=== PATIENT | female | born 1960 | race Caucasian/White ===

== ENCOUNTER 2019-04-05 15:06 | Inpatient (IN) | payer OTHER ==
[2019-04-05] MEDS ORDERED: FENTANYL CITR 100 MCG/2 ML ONE ×2 (16:01→16:56)
[2019-04-05] MEDS ORDERED: NA CHLORIDE 0.9% 1,000 ML ONE (16:02)
[2019-04-05] MEDS ORDERED: ONDANSETRON 4 MG/2 ML VIAL ONE (16:02)
[2019-04-05 16:10] LABS: Absolute Lymphocytes (CBC) 0.3 K/uL (0.7-4.9); Absolute Monocytes 0.2 K/uL (0.1-1.3); Basophils % 0.2 % (0-1.3); Eosinophils % 0.4 % (0-4.4); Hematocrit 42.9 % (36.0-45.0); MPV 7.9 fL (7.6-11.3); Monocytes % 1.9 % (3.3-12.3); RBC Red Blood Cell Count 4.76 M/uL (3.86-4.86)
[2019-04-05 16:25] LABS: Albumin 3.4 g/dL (3.4-5.0); Bilirubin Direct 0.1 mg/dL (0-0.2); Bilirubin Total 0.5 mg/dL (0.2-1.0); Potassium 3.5 mmol/L (3.5-5.1); Protein, Total 7.2 g/dL (6.4-8.2)
--- NOTE | 2019-04-05 17:16 | RAD REPORT ---
EXAM DESCRIPTION: CTAbdomen Pelvis W Contrast - 04/05/2019 4:56 pm CLINICAL HISTORY: Abdominal pain. FLANK PAIN COMPARISON: No comparisons TECHNIQUE: Biphasic CT imaging of the abdomen and pelvis was performed with 100 ml non-ionic IV cont rast. All CT scans are performed using dose optimization technique as appropriate and may include automated exposure control or mA/KV adjustment according to patient size. FINDINGS: The lung bases are clear. The liver, spleen, pancreas, adrenal glands and kidneys are within normal limits. Several thickened and dilated small bowel loops are seen in the upper abdomen and left flank. The ap pendix is normal. No evidence of significant lymphadenopathy. No suspicious bony findings. IMPRESSION: Multiple thickened and dilated small bowel loops are seen in the upper abdomen and left flank region. Primary diagnostic considerations would include inflammation/antritis versus early mech anical obstruction. Advise followup imaging in 24-48 hours if clinical symptomology persists.
--- NOTE | 2019-04-05 17:49 | ER ---
Nurse's Notes [facility] Name: Zora Houston Age: 58 yrs Sex: Female : 1960 Arrival Date: 04/05/2019 Time: 15:11 Bed 30 Private MD: Diagnosis: Small bowel obstruction Presentation: 04/05 15:15 Presenting complaint: Patient states: I have 6 disc replacements and having an rv operation with my doctor and when I told them about my pain on my left side, they looked at it and found a mass. I have an appointment on Sunday. EMS states: Pain started last night described as constant and sharp. it got worse today, 10/10 pain accompanied by nausea and vomiting since this 630am. Transition of care: patient was not received from another setting of care. Onset of symptoms was April 04, 2019 at 20:00. Risk Assessment: Do you want to hurt yourself or someone else? Patient reports no desire to harm self or others. Initial Sepsis Screen: Does the patient meet any 2 criteria? No. Patient's initial sepsis screen is negative. Does the patient have a suspected source of infection? No. Patient's initial sepsis screen is negative. Care prior to arrival: None. 15:15 Method Of Arrival: EMS: [facility] rv 15:15 Acuity: LAYA 3 rv Triage Assessment: 15:21 General: Appears in no apparent distress. uncomfortable, Behavior is cooperative, rv restless. Pain: Complains of pain in left side. EENT: No signs and/or symptoms were reported regarding the EENT system. Neuro: Level of Consciousness is awake, alert, obeys commands, Oriented to person, place, time, situation. Cardiovascular: Patient's skin is warm and dry. Respiratory: Airway is patent. GI: Reports nausea, vomiting, since 630am. : No signs and/or symptoms were reported regarding the genitourinary system. Derm: Skin is intact. Musculoskeletal: No signs and/or symptoms reported regarding the musculoskeletal system. Historical: - Allergies: 15:21 Phenergan; rv 15:21 Aspirin; rv 15:21 Stadol; rv - Home Meds: 15:21 None [Active]; rv - PMHx: 15:21 back problem; rv - PSHx: 15:21 Cholecystectomy; disc replacement; rv - Immunization history:: Adult Immunizations up to date. - Social history:: Smoking status: Patient uses tobacco products, smokes one-half pack cigarettes per day. - Ebola Screening: : No symptoms or risks identified at this time. Screenin:23 Abuse screen: Denies threats or abuse. Denies injuries from another. Nutritional rv screening: No deficits noted. Tuberculosis screening: No symptoms or risk factors identified. Fall Risk None identified. Assessment: 17:46 Reassessment: Patient appears in no apparent distress at this time. No changes from rv previously documented assessment. Patient and/or family updated on plan of care and expected duration. Pain level reassessed. Patient is alert, oriented x 3, equal unlabored respirations, skin warm/dry/pink. CHARISMA Rasheed went to the patient and explained the diagnostic results and plan of care. waiting for admission orders. 19:28 Reassessment:. rv Vital Signs: 15:11 BP 146 / 135; Pulse 127; Resp 20; Temp 98.8; Pulse Ox 100% ; lt1 16:00 BP 95 / 66; Pulse 112; Resp 18; Temp 98.4; Pulse Ox 97% ; rv 16:30 BP 102 / 88; Pulse 107; Resp 19; Pulse Ox 100% ; rv 17:30 BP 95 / 55; Pulse 88; Resp 18; Pulse Ox 99% ; rv 18:00 BP 91 / 46; Pulse 98; Resp 18; Pulse Ox 100% ; rv 18:30 BP 93 / 72; Pulse 85; Resp 16; Temp 99; Pulse Ox 99% ; rv 19:00 BP 96 / 56; Pulse 96; Resp 19; Pulse Ox 99% ; rv 19:32 BP 107 / 60; Pulse 102; Resp 21; Temp 99.6; Pulse Ox 100% ; rv ED Course: 15:11 Patient arrived in ED. rv 15:15 Alex Narayanan RN is Primary Nurse. rv 15:19 Triage completed. rv 15:22 Wili Leon NP is PHCP. pm1 15:22 Alessio Villa MD is Attending Physician. pm1 15:23 Patient has correct armband on for positive identification. Bed in low position. Call rv light in reach. Side rails up X 1. Pulse ox on. NIBP on. 15:23 Patient placed in an exam room, on a stretcher, on pulse oximetry, Patient notified of rv wait time. 15:24 Inserted saline lock: 22 gauge in right antecubital area, using aseptic technique. ss Blood collected. 16:03 Radiology exam delayed due to lab results not completed at this time. (BUN/Creatinine). mw3 16:03 Radiology exam delayed due to test not completed at this time. mw3 16:58 CT Abd/Pelvis - W/Contrast In Process Unspecified. EDMS 16:59 CT completed. Pt tolerated procedure poorly. Patient moved back from CT. mw3 17:47 Zabrina Bailon MD is Hospitalizing Provider. pm1 20:17 No provider procedures requiring assistance completed. Patient admitted, IV remains in rv place. Administered Medications: 15:00 Drug: Zofran 4 mg Route: IVP; Site: right antecubital; rv 17:44 Follow up: Response: No adverse reaction; Nausea is decreased rv 16:00 Drug: fentaNYL (PF) 50 mcg Route: IVP; Site: right antecubital; rv 17:44 Follow up: Response: Pain is unchanged, physician notified rv 16:01 Drug: NS 0.9% 1000 ml Route: IV; Rate: 1000 ml; Site: right antecubital; rv 17:44 Follow up: IV Status: Completed infusion; IV Intake: 1000ml rv 16:44 Drug: fentaNYL (PF) 50 mcg Route: IVP; Site: right antecubital; rv 17:44 Follow up: Response: Pain is unchanged, physician notified rv 17:43 Drug: morphine 4 mg Route: IVP; Site: right antecubital; rv 19:34 Follow up: Response: No adverse reaction; Pain is unchanged, physician notified rv 19:11 Drug: TORadol 30 mg Route: IVP; Site: right antecubital; ca1 19:34 Follow up: Response: Marked relief of symptoms; Pain is decreased rv Intake: 17:44 IV: 1000ml; Total: 1000ml. rv Outcome: 17:48 Decision to Hospitalize by Provider. pm1 20:17 Admitted to Tele accompanied by tech, via wheelchair, room 411, Report called to rv elias rebolledo 20:17 Condition: improved 20:17 Instructed on the need for admit. 20:18 Patient left the ED. rv Signatures: Dispatcher [facility] ZOEYIN Magda Torres RN RN ss Wili Leon [employer] FLOOR WORKER [employer] FLOOR WORKER pm1 Nina Snider mw3 Alex Narayanan RN RN rv Alyse Klein RN RN ca1 Maddi Anderson lt1 Corrections: (The following items were deleted from the chart) 19:33 18:30 BP 93 / 72; Pulse 85bpm; Resp 16bpm; Pulse Ox 99%; Temp 98.4F; rv rv
--- NOTE | 2019-04-05 17:49 | EDPHYS ---
Physician Documentation [facility] Name: Zora Houston Age: 58 yrs Sex: Female : 1960 Arrival Date: 04/05/2019 Time: 15:11 Bed 30 Private MD: ED Physician Alessio Villa HPI: 04/05 16:15 This 58 yrs old Female presents to ER via EMS with complaints of Left flank pm1 pain. 16:15 The patient complains of pain in the left low back. Onset: The symptoms/episode pm1 began/occurred this morning. Modifying factors: The symptoms are alleviated by nothing. the symptoms are aggravated by nothing. Associated signs and symptoms: Pertinent positives: diarrhea, nausea, vomiting, Pertinent negatives: fever. Severity of pain: in the emergency department the pain is actually worse. The patient has not experienced similar symptoms in the past. The patient has been recently seen by a physician: with different complaint(s), Steroid injections to lumbar spine area on Sunday of last week. Patient felt fine until this morning with left flank pain, with multiple episodes of nausea, vomiting, and diarrhea. Historical: - Allergies: 15:21 Phenergan; rv 15:21 Aspirin; rv 15:21 Stadol; rv - Home Meds: 15:21 None [Active]; rv - PMHx: 15:21 back problem; rv - PSHx: 15:21 Cholecystectomy; disc replacement; rv - Immunization history:: Adult Immunizations up to date. - Social history:: Smoking status: Patient uses tobacco products, smokes one-half pack cigarettes per day. - Ebola Screening: : No symptoms or risks identified at this time. ROS: 16:17 Constitutional: Negative for fever, chills, and weight loss, Eyes: Negative for injury, pm1 pain, redness, and discharge, ENT: Negative for injury, pain, and discharge, Neck: Negative for injury, pain, and swelling, Cardiovascular: Negative for chest pain, palpitations, and edema, Respiratory: Negative for shortness of breath, cough, wheezing, and pleuritic chest pain. 16:17 : Negative for injury, bleeding, discharge, and swelling, MS/Extremity: Negative for injury and deformity, Skin: Negative for injury, rash, and discoloration, Neuro: Negative for headache, weakness, numbness, tingling, and seizure. 16:17 Abdomen/GI: Positive for abdominal pain, nausea, vomiting, and diarrhea, Negative for constipation. 16:17 Back: Positive for flank pain, on the left, Negative for decreased range of motion. Exam: 16:17 Constitutional: This is a well developed, well nourished patient who is awake, alert, pm1 and in no acute distress. Head/Face: Normocephalic, atraumatic. Eyes: Pupils equal round and reactive to light, extra-ocular motions intact. Lids and lashes normal. Conjunctiva and sclera are non-icteric and not injected. Cornea within normal limits. Periorbital areas with no swelling, redness, or edema. ENT: Nares patent. No nasal discharge, no septal abnormalities noted. Tympanic membranes are normal and external auditory canals are clear. Oropharynx with no redness, swelling, or masses, exudates, or evidence of obstruction, uvula midline. Mucous membranes moist. Neck: Trachea midline, no thyromegaly or masses palpated, and no cervical lymphadenopathy. Supple, full range of motion without nuchal rigidity, or vertebral point tenderness. No Meningismus. Chest/axilla: Normal chest wall appearance and motion. Nontender with no deformity. No lesions are appreciated. Cardiovascular: Regular rate and rhythm with a normal S1 and S2. No gallops, murmurs, or rubs. Normal PMI, no JVD. No pulse deficits. Respiratory: Lungs have equal breath sounds bilaterally, clear to auscultation and percussion. No rales, rhonchi or wheezes noted. No increased work of breathing, no retractions or nasal flaring. 16:17 Skin: Warm, dry with normal turgor. Normal color with no rashes, no lesions, and no evidence of cellulitis. MS/ Extremity: Pulses equal, no cyanosis. Neurovascular intact. Full, normal range of motion. 16:17 Abdomen/GI: Inspection: abdomen appears normal, Palpation: moderate abdominal tenderness, in the left upper quadrant and left lower quadrant, mass, is not appreciated, rebound tenderness, is not appreciated. 16:17 Back: pain, that is moderate, of the left low back, normal spinal alignment noted, vertebral tenderness, is not appreciated. 16:17 Neuro: Orientation: is normal, Motor: is normal, moves all fours, Sensation: is normal, no obvious gross deficits. Vital Signs: 15:11 BP 146 / 135; Pulse 127; Resp 20; Temp 98.8; Pulse Ox 100% ; lt1 16:00 BP 95 / 66; Pulse 112; Resp 18; Temp 98.4; Pulse Ox 97% ; rv 16:30 BP 102 / 88; Pulse 107; Resp 19; Pulse Ox 100% ; rv 17:30 BP 95 / 55; Pulse 88; Resp 18; Pulse Ox 99% ; rv 18:00 BP 91 / 46; Pulse 98; Resp 18; Pulse Ox 100% ; rv 18:30 BP 93 / 72; Pulse 85; Resp 16; Temp 99; Pulse Ox 99% ; rv 19:00 BP 96 / 56; Pulse 96; Resp 19; Pulse Ox 99% ; rv 19:32 BP 107 / 60; Pulse 102; Resp 21; Temp 99.6; Pulse Ox 100% ; rv MDM: 15:35 Patient medically screened. pm1 17:30 ED course: Multiple thickened and dilated small bowel loops in the upper abdomen and pm1 left flank region consistent with patient' presentation of pain. Impression is early mechanical obstruction therefore I will admit the patient. 17:37 Data reviewed: vital signs. Data interpreted: Pulse oximetry: on room air is 100 %. pm1 Interpretation: normal. Counseling: I had a detailed discussion with the patient and/or guardian regarding: the historical points, exam findings, and any diagnostic results supporting the discharge/admit diagnosis, lab results, radiology results, the need for further work-up and treatment in the hospital. 17:40 Physician consultation: Zabrina Bailon MD was called at 17:40, was contacted at 17:40, pm1 regarding admission, patient's condition. 18:16 Physician consultation: Zabrina Bailon MD was contacted at 18:16, regarding admission, pm1 admitted patient to observation status. 04/05 15:42 Order name: Basic Metabolic Panel; Complete Time: 16:34 pm1 04/05 15:42 Order name: CBC with Diff; Complete Time: 18:12 pm1 04/05 15:42 Order name: Creatinine for Radiology; Complete Time: 16:22 pm1 04/05 15:42 Order name: Hepatic Function; Complete Time: 16:34 pm1 04/05 15:42 Order name: Lipase; Complete Time: 16:34 pm1 04/05 18:03 Order name: CBC Smear Scan; Complete Time: 18:12 EDNJ 04/05 15:42 Order name: IV Saline Lock; Complete Time: 16:01 pm1 04/05 15:42 Order name: CT Abd/Pelvis - W/Contrast; Complete Time: 17:23 pm1 04/05 15:42 Order name: Labs collected and sent; Complete Time: 16:01 pm1 Administered Medications: 15:00 Drug: Zofran 4 mg Route: IVP; Site: right antecubital; rv 17:44 Follow up: Response: No adverse reaction; Nausea is decreased rv 16:00 Drug: fentaNYL (PF) 50 mcg Route: IVP; Site: right antecubital; rv 17:44 Follow up: Response: Pain is unchanged, physician notified rv 16:01 Drug: NS 0.9% 1000 ml Route: IV; Rate: 1000 ml; Site: right antecubital; rv 17:44 Follow up: IV Status: Completed infusion; IV Intake: 1000ml rv 16:44 Drug: fentaNYL (PF) 50 mcg Route: IVP; Site: right antecubital; rv 17:44 Follow up: Response: Pain is unchanged, physician notified rv 17:43 Drug: morphine 4 mg Route: IVP; Site: right antecubital; rv 19:34 Follow up: Response: No adverse reaction; Pain is unchanged, physician notified rv 19:11 Drug: TORadol 30 mg Route: IVP; Site: right antecubital; ca1 19:34 Follow up: Response: Marked relief of symptoms; Pain is decreased rv Disposition: 04/05/19 17:48 Hospitalization ordered by Zabrina Bailon for Observation. Preliminary diagnosis is Small bowel obstruction. - Bed requested for Telemetry/MedSurg (observation). - Status is Observation. rv - Condition is Stable. - Problem is new. - Symptoms have improved. UTI on Admission? No Addendum: 04/07/2019 06:33 Co-signature as Attending Physician, Alessio Villa MD I agree with the assessment and k dr plan of care. Signatures: Dispatcher [employer] EDNJ Alessio Villa MD MD kdr Garcia, Cindy, RN RN cg Wili Leon, [employer] ASSISTANT [employer] COACH pm1 Alex Narayanan RN RN Alyse Ramirez RN RN ca1 Corrections: (The following items were deleted from the chart) 04/05 18:16 17:48 Hospitalization Ordered by Zabrina Bailon MD for Inpatient Admission. Preliminary pm1 diagnosis is Small bowel obstruction. Bed requested for Telemetry/MedSurg (Inpatient). Status is Inpatient Admission. Condition is Stable. Problem is new. Symptoms have improved. UTI on Admission? No. pm1 19:07 18:16 04/05/2019 17:48 Hospitalization Ordered by Zabrina Bailon MD for Observation. cg Preliminary diagnosis is Small bowel obstruction. Bed requested for Telemetry/MedSurg (observation). Status is Observation. Condition is Stable. Problem is new. Symptoms have improved. UTI on Admission? No. pm1 20:18 19:07 04/05/2019 17:48 Hospitalization Ordered by Zabrina Bailon MD for Observation. rv Preliminary diagnosis is Small bowel obstruction. Bed requested for Telemetry/MedSurg (observation). Status is Observation. Condition is Stable. Problem is new. Symptoms have improved. UTI on Admission? No. cg
[2019-04-05] MEDS ORDERED: MORPHINE 4 MG/ML SYR ONE (17:52)
[2019-04-05 18:01] LABS: Blood Morphology Comment NOT SEEN (NOT SEEN); Platelet Estimate ADEQ; Urine White Blood Cell Casts OK
--- NOTE | 2019-04-05 18:34 | P.HP ---
Certification for Inpatient Patient admitted to: Observation With expected LOS: <2 Midnights Practitioner: I am a practitioner with admitting privileges, knowledge of patient current condition, hospital course, and medical plan of care. Services: Services provided to patient in accordance with Admission requirements found in Title 42 Section 412.3 of the Code of Federal Regulations Patient History Date of Service: 04/05/19 Reason for admission: Abdominal pain, vomiting History of Present Illness: Patient is a 58-year-old female with past medical history of osteoarthritis who was in her usual state of health until 2 days prior to admission when the patient had sudden onset of abdominal pain. Patient's pain is constant moderate progressively worsening nonradiating. Patient does admit to drinking well water. No travel outside the country or unusual foods. No ill contacts. Patient reports diarrhea multiple episodes of nausea and vomiting which non bloody nonbilious. Patient has not tolerated p.o. intake. Patient also reports "mass" on the left flank prior to recent steroid shot in the back. Patient came into the ER for further evaluation. Her workup revealed small bowel obstruction of on imaging study. Allergies butorphanol tartrate [From Stadol] Allergy (Intermediate, Verified 07/02/12 20: 37) Nausea/Vomiting Penicillins Allergy (Intermediate, Verified 07/02/12 20:37) Itching Home medications list reviewed: Yes Home Medications: Zolpidem Tartrate [Ambien*] 1 tab PO BEDTIME PRN 05/19/14 Ropinirole HCl [Requip*] 1 mg PO DAILY 07/14/15 - Past Medical/Surgical History Diabetic: No -: Restless Leg Sysndrome -: GERD -: bleeding ulcer -: Cholecystectomy -: Titanium screws on C4, C5, C6 -: Collar bone surgery -: metal plate in neck -: tubal ligation - Family History Sister -: Hypertension Mother -: Stroke, Cancer Notes: breast cancer - Social History Smoking Status: Current every day smoker Counseled patient to stop smoking for: less than 10 minutes Alcohol use: No CD- Drugs: No Caffeine use: Yes Place of Residence: Home Review of Systems 10-point ROS is otherwise unremarkable Gastrointestinal: As per HPI Physical Examination - Vital Signs Temperature: 98.8 F Blood Pressure: 146/135 Pulse: 127 Respirations: 20 Pulse Ox (%): 100 - Physical Exam General: Alert, Oriented x3, Moderate distress, Other (Cachectic older than stated age female) HEENT: Atraumatic, PERRLA, Other (Dry mucous membranes), EOMI, Sclerae nonicteric Neck: Supple, 2+ carotid pulse no bruit, JVD not distended Respiratory: Clear to auscultation bilaterally, Normal air movement Cardiovascular: No edema, Normal pulses, Normal S1 S2, Irregular heart rate/ rhythm Gastrointestinal: No rebound, Absent bowel sounds, Tenderness, Guarding Musculoskeletal: Tenderness (Left flank. No mass seen) Integumentary: No rashes, No erythema Neurological: Normal speech, Normal strength at 5/5 x4 extr, Normal tone, Normal affect - Studies Laboratory Data (last 24 hrs) 04/05/19 13:35: Creatinine 0.75 04/05/19 13:35: WBC 8.6, Hgb 14.2, Hct 42.9, Plt Count 353 04/05/19 13:35: Sodium 140, Potassium 3.5, BUN 24 H, Creatinine 0.74, Glucose 97 , Total Bilirubin 0.5, AST 15, ALT 20, Alkaline Phosphatase 93, Lipase 113 Imagings Data: IMPRESSION: Multiple thickened and dilated small bowel loops are seen in the upper abdomen and left flank region. Primary diagnostic considerations would include inflammation/antritis versus early mechanical obstruction. Advise followup imaging in 24-48 hours if clinical symptomology persists. Assessment and Plan - Problems (Diagnosis) (1) Small bowel obstruction Current Visit: Yes Status: Acute (2) Diarrhea Current Visit: Yes Status: Acute (3) Abdominal pain Current Visit: No Status: Acute Qualifiers: Abdominal location: generalized Qualified Code(s): R10.84 - Generalized abdominal pain (4) Dehydration Onset Date: 07/15/15 Current Visit: No Status: Acute (5) Nausea & vomiting Onset Date: 07/15/15 Current Visit: No Status: Acute Qualifiers: Vomiting Intractability: intractable (6) Nicotine dependence with current use Current Visit: Yes Status: Acute - Plan Patient likely has small bowel obstruction due to adhesions from her previous abdominal surgeries. If recurrent vomiting episodes occur will place NG tube. NPO IV fluids with D5 half NS with 20 mEq potassium at 100 mL/hour Surgical consultation Pain control with IV analgesics SCDs for DVT prophylaxis. No chemical anticoagulation due to history of bleeding gastric ulcer and possible surgical intervention Check magnesium and phosphorus level Likely Dc in the next 24 hr depending on clinical improvement Repeat abdominal x-ray in a.m. Discharge Plan: Home Plan to discharge in: 24 Hours - Advance Directives Does patient have a Living Will: No Does patient have a Durable POA for Healthcare: No
[2019-04-05] MEDS ORDERED: KETOROLAC 30 MG/ML INJ ONE (19:20)
[2019-04-05] MEDS ORDERED: ACETAMINOPHEN 650MG/RECT SUPP RECT PRN (20:22)
[2019-04-05] MEDS ORDERED: ONDANSETRON 4 MG/2 ML VIAL IV PRN (20:22)
[2019-04-05] MEDS: D5.45NS W/KCL 20MEQ 1,000 ML IV SCH (21:30)
[2019-04-05] MEDS: MORPHINE 2 MG/ML SYR IV PRN (21:30)
[2019-04-05 22:32] VITALS: BMI 16.8
[2019-04-06 06:00] LABS: Absolute Lymphocytes (CBC) 0.8 K/uL (0.7-4.9); Absolute Monocytes 0.3 K/uL (0.1-1.3); Absolute Neutrophil 2.8 K/uL (1.8-8.0); Basophils % 0.4 % (0-1.3); Hematocrit 37.5 % (36.0-45.0); MPV 7.7 fL (7.6-11.3); Monocytes % 6.6 % (3.3-12.3); RBC Red Blood Cell Count 4.18 M/uL (3.86-4.86)
[2019-04-06] MEDS: D5.45NS W/KCL 20MEQ 1,000 ML IV SCH ×2 (06:22→18:16)
[2019-04-06 06:28] LABS: ALT/SGPT 153 U/L (12-78); AST/SGOT 195 U/L (15-37); Albumin 2.8 g/dL (3.4-5.0); Alkaline Phosphatase 151 U/L (45-117); BUN Blood Urea Nitrogen 22 mg/dL (7-18); Bicarbonate 29 mmol/L (21-32); Bilirubin Total 0.7 mg/dL (0.2-1.0); Glucose Level 94 mg/dL (74-106); Magnesium 2.1 mg/dL (1.8-2.4); Phosphorus 3.8 mg/dL (2.5-4.9); Potassium 3.4 mmol/L (3.5-5.1); Protein, Total 6.1 g/dL (6.4-8.2); Sodium Level 143 mmol/L (136-145)
[2019-04-06] MEDS: MORPHINE 2 MG/ML SYR IV PRN ×3 (10:18→23:12)
[2019-04-06] MEDS: KCL 20 MEQ/100 mL IVPB 20 MEQ/100 ML BAG IV SCH ×2 (10:18→11:37)
--- NOTE | 2019-04-06 10:24 | RAD REPORT ---
EXAM DESCRIPTION: RAD - Abdomen W Erect - 04/06/2019 6:54 am CLINICAL HISTORY: Abdominal pain FINDINGS: Free air is not seen beneath the diaphragm. Small-bowel loops within the pelvis remains di lated. No additional dilated small bowel seen. This probably represents an enteritis but should be fo llowed with subsequent abdominal plain film series Left basilar lung opacity is present which may represent pneumonia. Follow up PA and lateral chest se donnie recommended .
--- NOTE | 2019-04-06 13:17 | P.PN ---
Subjective Date of Service: 04/06/19 Chief Complaint: Abdominal pain, vomiting Patient seen and examined chart reviewed and case discussed with RN and Dr. Kendrick. Patient is feeling better. Passing some gas. No further vomiting. Still complaining of significant pain on her left flank along with some swelling Review of Systems 10-point ROS is otherwise unremarkable Physical Examination - Vital Signs Temperature: 98.7 F Blood Pressure: 97/51 Pulse: 89 Respirations: 16 Pulse Ox (%): 100 - Physical Exam General: Alert, Oriented x3, Cachectic, Mild distress, Other (Cachectic appears older than stated age) HEENT: Atraumatic, PERRLA, EOMI Neck: Supple, JVD not distended Respiratory: Clear to auscultation bilaterally, Normal air movement Cardiovascular: No edema, Normal pulses, Regular rate/rhythm, Normal S1 S2 Gastrointestinal: Normal bowel sounds, Soft and benign, Non-distended, No tenderness Musculoskeletal: Swelling, Tenderness (Left flank) Integumentary: No rashes Neurological: Normal speech, Normal tone, Normal affect - Studies Laboratory Data (last 24 hrs) 04/05/19 13:35: Creatinine 0.75 04/05/19 13:35: WBC 8.6, Hgb 14.2, Hct 42.9, Plt Count 353 04/05/19 13:35: Sodium 140, Potassium 3.5, BUN 24 H, Creatinine 0.74, Glucose 97 , Total Bilirubin 0.5, AST 15, ALT 20, Alkaline Phosphatase 93, Lipase 113 Imagings Data: EXAM DESCRIPTION: RAD - Abdomen W Erect - 04/06/2019 6:54 am CLINICAL HISTORY: Abdominal pain FINDINGS: Free air is not seen beneath the diaphragm. Small-bowel loops within the pelvis remains dilated. No additional dilated small bowel seen. This probably represents an enteritis but should be followed with subsequent abdominal plain film series Left basilar lung opacity is present which may represent pneumonia. Follow up PA and lateral chest series recommended Medications List Reviewed: Yes Assessment And Plan - Current Problems (Diagnosis) (1) Small bowel obstruction Current Visit: Yes Status: Acute (2) Diarrhea Current Visit: Yes Status: Acute (3) Abdominal pain Current Visit: No Status: Acute Qualifiers: Abdominal location: generalized Qualified Code(s): R10.84 - Generalized abdominal pain (4) Dehydration Onset Date: 07/15/15 Current Visit: No Status: Acute (5) Nausea & vomiting Onset Date: 07/15/15 Current Visit: No Status: Acute Qualifiers: Vomiting Intractability: intractable (6) Nicotine dependence with current use Current Visit: Yes Status: Acute (7) Enteritis Current Visit: Yes Status: Acute - Plan Small-bowel obstruction improving. Patient passing gas. Abdominal x-ray reviewed. Start on antibiotics for possible enteritis NPO IV fluids with D5 half NS with 20 mEq potassium at 100 mL/hour Appreciate Surgical consultation by Dr. Kendrick. He recommends GI evaluation. Patient's primary GI out of town April 14. Pain control with IV analgesics SCDs for DVT prophylaxis. No chemical anticoagulation due to history of bleeding gastric ulcer and possible surgical intervention Likely Dc in the next 24 hr depending on clinical improvement Advance diet if okay with surgery IV PPI
[2019-04-06] MEDS: PANTOPRAZOLE 40 MG INJ IVP SCH ×2 (13:39→21:19)
--- NOTE | 2019-04-06 19:52 | RAD REPORT ---
EXAM DESCRIPTION: US - Extremity Nonvascular Limited - 04/06/2019 7:43 pm CLINICAL HISTORY: Left flank swelling COMPARISON: None FINDINGS: Sonographic evaluation left flank does not demonstrate a cystic or solid mass. No abnormal ity is displayed IMPRESSION: Unremarkable ultrasound left flank
--- NOTE | 2019-04-06 19:53 | CON ---
Date of Consultation: 04/06/2019 Diagnoses: Abdominal pain, bowel obstruction, and gastroenteritis. History Of Present Illness: This is the case of a 58-year-old patient with multiple medical problems , who comes here with 2 days history of abdominal pain associated with nausea and bloating. Presentl y, she has been receiving the steroid shots on her back for a pathology that is hard to understand si nce she claims she has a mass in that region. During the workup, the patient revealed to have a smal l bowel obstruction. Surgical consult was obtained. Allergies: STADOL AND PENICILLIN. Medications: Include Ambien and Requip. Past Medical History: Include GERD, bleeding ulcers, previous gastroenteritis, restless leg syndrome . Past Surgical History: Include cholecystectomy, metal plate in the neck, tubal ligation, and collarb one surgery. Family History: Includes hypertension and stroke. Social History: She is a smoker. She drink alcohol occasionally. Review of Systems: Ten points, otherwise unremarkable. Gastrointestinal: Denies any melena or any hematochezia, although she has history of ulcers in the p ast. Genitourinary: Denies any dysuria or hematuria. Physical Examination: General: The patient is awake and alert. No distress. HEENT: Pupils are equal and reactive, anicteric. Neck: Supple. Chest: Clear. Abdomen: Softly distended. Generalized mild tenderness. No guarding or rebound. Extremities: Good capillary refill. Rectal: Deferred. Laboratory Data: Blood work shows WBC count of 8.6 with hemoglobin of 14.2. Chemistry shows chlorid e is 108, creatinine is 0.74. Acetaminophen is still pending. Hepatitis profile is still pending. The patient has liver enzymes elevated. AST 195, ALT of 153, and alkaline phos of 151. Reason for t hat unknown at this moment. CT scan of abdomen and pelvis interpreted by as several t hickening and dilated small bowel loops were seen in the upper abdomen and left flank region, cannot to rule out any mechanical obstruction. Assessment: A 58-year-old patient with abdominal pain, nausea, and vomiting. She has some injection s recently with steroid for some pathology in the left flank that is still unclear. After that, she developed this symptoms. Right now, we see the small bowel ileus, gastroenteritis, inflammation, can not rule out an obstruction, so we going to give her bowel rest. Obviously, the antibiotics, stool c ultures I believe this patient needs a hcc coders, so I encourage the primary doct or to as soon as they can to get a hcc coders expertise in this and to make sure, we not deal ing with a chronic inflammatory bowel disease. Apparently, she has a history and trips to the gastro enterologist first for the pain similar to that. GEOVANNA/MICHAEL Voice ID: [id number] Report ID: [id number]
[2019-04-06] MEDS ORDERED: POTASSIUM 25 MEQ EFFERV TAB PO ONE (21:00)
[2019-04-07 08:26] LABS: Potassium 4.1 mmol/L (3.5-5.1)
[2019-04-07 08:29] VITALS: O2SAT 96
[2019-04-07] MEDS ORDERED: SODIUM CHLORIDE 0.9% 10ML INJ IV SCH (09:00)
[2019-04-07] MEDS: PANTOPRAZOLE 40 MG INJ IVP SCH (09:14)
[2019-04-07] MEDS: D5.45NS W/KCL 20MEQ 1,000 ML IV SCH (09:15)
--- NOTE | 2019-04-07 11:11 | P.DS ---
Admission Date: 04/06/19 Discharge Date: 04/07/19 Disposition: ROUTINE DISCHARGE Discharge Condition: FAIR Reason for Admission: Abdominal pain, vomiting - Problems (1) Small bowel obstruction Current Visit: Yes Status: Acute (2) Enteritis Current Visit: Yes Status: Acute (3) Diarrhea Current Visit: Yes Status: Acute (4) Abdominal pain Current Visit: No Status: Acute Qualifiers: Abdominal location: generalized Qualified Code(s): R10.84 - Generalized abdominal pain (5) Dehydration Onset Date: 07/15/15 Current Visit: No Status: Acute (6) Nausea & vomiting Onset Date: 07/15/15 Current Visit: No Status: Acute Qualifiers: Vomiting Intractability: intractable (7) Nicotine dependence with current use Current Visit: Yes Status: Acute Brief History of Present Illness: Patient is a 58-year-old female with past medical history of osteoarthritis who was in her usual state of health until 2 days prior to admission when the patient had sudden onset of abdominal pain. Patient's pain is constant moderate progressively worsening nonradiating. Patient does admit to drinking well water. No travel outside the country or unusual foods. No ill contacts. Patient reports diarrhea multiple episodes of nausea and vomiting which non bloody nonbilious. Patient has not tolerated p.o. intake. Patient also reports "mass" on the left flank prior to recent steroid shot in the back. Patient came into the ER for further evaluation. Her workup revealed small bowel obstruction of on imaging study. Hospital Course: Patient is a 58-year-old female with past medical history of peptic ulcer disease and chronic back pain with multiple surgeries in the past who comes in with abdominal pain nausea vomiting and diarrhea. Patient was found to have small bowel obstruction on imaging. Patient was started on IV fluids and kept NPO. Patient refused NG tube placement. Patient's nausea and vomiting improved. She was started had flatus. General surgeon Dr. Kendrick was also consulted. He did not recommend any surgical intervention and recommended GI follow up. Patient's primary GI doctor Krystyna is out of town and no other GI coverage available. Patient was started on IV Protonix. Patient has significant improvement in her symptoms. Patient tolerated TRAVIS a soft diet. Nausea vomiting and diarrhea had resolved. Patient was ambulating well. Patient did have incidental finding of mildly elevated liver enzymes despite being normal on admission. unclear etiology. Hepatis blood panel was checked. Patient did report taking 3 g of Tylenol a day for the past several months. Tylenol level was checked and was negative. Patient was counseled regarding use of Tylenol. I explained to her that she should avoid use in the future. Patient was then cleared for discharge from surgical standpoint. She is to follow up with GI as an outpatient to follow up on her liver enzymes. Patient would benefit from scope to rule out any sort of inflammatory bowel disease. Vital Signs/Physical Exam: Temp Pulse Resp BP Pulse Ox 98.5 F 81 18 101/50 L 99 04/07/19 08:00 04/07/19 08:00 04/07/19 08:00 04/07/19 08:00 04/07/19 08:00 General: Alert, In no apparent distress, Oriented x3, Cachectic, Other (Appears older than stated age) HEENT: Atraumatic, PERRLA, EOMI Neck: Supple, JVD not distended Respiratory: Clear to auscultation bilaterally, Normal air movement Cardiovascular: No edema, Normal pulses, Regular rate/rhythm, Normal S1 S2 Gastrointestinal: Normal bowel sounds, Soft and benign, Non-distended, No tenderness Musculoskeletal: No tenderness Integumentary: No rashes Neurological: Normal speech, Normal tone, Normal affect Laboratory Data at Discharge: WBC 3.9 K/uL (4.3-10.9) L D 04/06/19 04:43 Hgb 12.7 g/dL (12.0-15.0) 04/06/19 04:43 Hct 37.5 % (36.0-45.0) 04/06/19 04:43 Plt Count 311 K/uL (152-406) 04/06/19 04:43 Sodium 146 mmol/L (136-145) H 04/07/19 07:59 Potassium 4.1 mmol/L (3.5-5.1) 04/07/19 07:59 BUN 11 mg/dL (7-18) 04/07/19 07:59 Creatinine 0.76 mg/dL (0.55-1.3) 04/07/19 07:59 Glucose 121 mg/dL (74-106) H 04/07/19 07:59 Phosphorus 3.8 mg/dL (2.5-4.9) 04/06/19 04:43 Magnesium 2.1 mg/dL (1.8-2.4) 04/06/19 04:43 Total Bilirubin 0.7 mg/dL (0.2-1.0) 04/06/19 04:43 AST 195 U/L (15-37) H D 04/06/19 04:43 ALT 153 U/L (12-78) H D 04/06/19 04:43 Alkaline Phosphatase 151 U/L (45-117) H D 04/06/19 04:43 Lipase 113 U/L (73-393) 04/05/19 13:35 Home Medications: Zolpidem Tartrate [Ambien*] 1 tab PO BEDTIME PRN 05/19/14 Buprenorphine HCl/Naloxone HCl [Suboxone 8 mg-2 mg Sl Film] 1 unit SL BID Ciprofloxacin HCl [Cipro 500 MG Tablet] 500 mg PO BID #20 tab 04/07/19 Pantoprazole [Protonix Tab] 40 mg PO DAILY #30 tab 04/07/19 metroNIDAZOLE [Flagyl] 500 mg PO Q8H #30 tablet 04/07/19 New Medications: Ciprofloxacin HCl [Cipro 500 MG Tablet] 500 mg PO BID #20 tab metroNIDAZOLE [Flagyl] 500 mg PO Q8H #30 tablet Pantoprazole [Protonix Tab] 40 mg PO DAILY #30 tab Patient Discharge Instructions: Follow up with primary care physician in 2-3 days. Follow up with GI Dr. Greenwood in 1 week. Return to ER for worsening condition Diet: [place] Activity: Ad chad Time spent managing pt's care (in minutes): 35
[2019-04-07 12:05] VITALS: BP 113/61; TEMP 99.2
[2019-04-09 12:31] LABS: HBsAG Nonreactive (Nonreactive); Hepatitis A IgM Antibody Nonreactive
== END 2019-04-07 13:08 | disposition home or self-care (01) | DRG 390 ==
LOC: ER 15:06 → ERHOLD 18:03 → 4TH 20:05 → OBSVTOIN 04-06 17:23
PROVIDERS: ADMIT Family Medicine; ATTEND Family Medicine
DX: K56.609 Unspecified intestinal obstruction, unspecified as to partial versus complete obstruction (principal); E86.0 Dehydration; K52.9 Noninfective gastroenteritis and colitis, unspecified; M19.90 Unspecified osteoarthritis, unspecified site; R74.8 Abnormal levels of other serum enzymes; F17.210 Nicotine dependence, cigarettes, uncomplicated; E87.6 Hypokalemia; Z88.0 Allergy status to penicillin
CPT/HCPCS: 36415; 74019; 74177; 76882; 80048; 80053; 80074; 80076; 80329; 83690; 83735; 84100; 84132; 85025; 94760; 96361; 96374; 96375; 99285; C9113; G0378; J2270; J2405; J3010; J7030; Q9967